=== PATIENT | male | born 1985 | race Caucasian/White ===

== ENCOUNTER 2017-09-07 10:35 | Emergency (ER) | payer SELFPAY ==
--- NOTE | 2017-09-07 11:01 | EDM.PDOC ---
ED HPI GENERAL MEDICAL PROBLEM - General Chief Complaint: ENT Problem Stated Complaint: PIECE OF METAL IN EYE Time Seen by Provider: 09/07/17 11:00 Source of Information: Reports: Patient History Limitations: Reports: No Limitations - History of Present Illness INITIAL COMMENTS - FREE TEXT/NARRATIVE: 32-year-old male presents for evaluation treatment of metal to the right eye. 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 He states 2 days ago he believes he got some metal and his eye. He states he did not see anything initially. He states now today he has appreciated foreign body to the right eye. He reports discomfort in the right eye. No vision changes. Patient wears glasses. Duration: Day(s): (2) Right Eye Pain Score (Numeric/FACES): 7 - Related Data Allergies Allergy/AdvReac Type Severity Reaction Status Date / Time pseudoephedrine Allergy Itching Verified 09/07/17 10:52 [From Sudafed] shellfish derived Allergy Airway Verified 09/07/17 10:52 Tightness Home Meds: Home Meds . [No Known Home Meds] 09/07/17 [History] Past Medical History - Past Health History Medical/Surgical History: Denies Medical/Surgical History HEENT History: Reports: Impaired Vision - Past Surgical History Musculoskeletal Surgical History: Reports: Arthroscopic Knee Social & Family History - Family History Family Medical History: Noncontributory - Tobacco Use Smoking Status *Q: Never Smoker - Recreational Drug Use Recreational Drug Use: No ED ROS GENERAL - Review of Systems Review Of Systems: See Below HEENT: Reports: Ear Pain (right). Denies: Vision Change ED EXAM GENERAL W FULL EYE - Physical Exam Exam: See Below Exam Limited By: No Limitations General Appearance: Alert, WD/WN, No Apparent Distress Eye Exam: Right Eye: Conjunctival Injection, Bilateral Eye: Corneal Abrasion ( right eye: 7 o'clock and 9 o'clock; left eye: 3 o'clock and 6 o'clock), Foreign Body (no foreign body identified; rust ring present to the right eye 7'clock), PERRL Eyelids: Bilateral: Normal Appearance Conjunctiva & Sclera: Right: Injected, Left: Normal Appearance Cornea Exam: Bilateral: Corneal Abrasion, Examined with Flourescein Extraocular Movements: Bilateral: Intact Pupils: Normal Accommodation Pupillary Size: Bilateral: 4 mm Pupillary Reaction: Bilateral: Brisk Anterior Chamber: Bilateral: Normal Appearance Ears: Normal External Exam Respiratory/Chest: No Respiratory Distress Neurological: Alert, Oriented, Normal Cognition Psychiatric: Normal Affect, Normal Mood Skin Exam: Warm, Dry, Normal Color Course - Vital Signs Last Recorded V/S: Last Vital Signs Temp Pulse 78 09/07/17 10:49 Resp 16 09/07/17 10:49 BP 133/93 H 09/07/17 10:49 Pulse Ox 97 09/07/17 10:49 - Re-Assessments/Exams Free Text/Narrative Re-Assessment/Exam: 09/07/17 11:46 Using a cristhian, I was able to grind out most of the rust ring. No foreign material was identified. The metal likely came out on its own or with previous irrigation. Erythromycin ointment for both eyes as he did have some small corneal abrasions to the left as well. Follow-up with manager automotive as soon as he is able to. Discharge instructions as documented Departure - Departure Time of Disposition: 11:48 Disposition: Home, Self-Care 01 Condition: Fair Clinical Impression: Corneal rust ring of right eye - Discharge Information Referrals: PCP,None [Primary Care Provider] - Forms: ED Department Discharge Additional Instructions: RX for erythromycin ophthalmic ointment 0.5% given. Please take this to [facility] to have it filled. erythromycin ointment to the eyes 3 times a day for [address] a 1/2-1 cm ribbon to the lower eye lid and blink several times. [id number] Tylenol or Motrin as needed for pain relief. Follow-up with your eye doctor as soon as you are able to. Call your eye clinic tomorrow to see if they can see you tomorrow or Monday; If not Monday at the latest. Please return to the ER if your symptoms change or worsen.
== END 2017-09-07 12:05 | disposition home or self-care (01) ==
LOC: JD.ED 10:35
DX: T15.01XA Foreign body in cornea, right eye, initial encounter (principal); Z88.8 Allergy status to other drugs, medicaments and biological substances; Z91.013 Allergy to seafood; X58.XXXA Exposure to other specified factors, initial encounter
CPT/HCPCS: 99283